=== PATIENT | male | born 1960 | race Hispanic/Latino ===

== ENCOUNTER 2023-04-01 12:29 | Emergency (ER) | payer SELFPAY ==
[2023-04-01 12:36] VITALS: BP 205/89; PULSE 68; RESP 16; TEMP 36.2; O2SAT 97
[2023-04-01 13:12] LABS: Add Manual Diff / Slide Review NO; Basophils Absolute Auto 0 /uL (0-100); Basophils Percent Auto 0.4 % (0-2); Eosinophils Absolute Auto 200 /uL (0-450); Eosinophils Percent Auto 3.2 % (2-4); Hematocrit 46.3 % (41-53); Hemoglobin 16.2 g/dL (13.5-17.5); Lymphocytes Absolute Auto 1500 /uL (1100-4500); Lymphocytes Percent Auto 27.5 % (25-40); Mean Corpuscular HGB Conc 34.9 % (30-36); Mean Corpuscular Hemoglobin 30.5 PG (26-34); Mean Corpuscular Volume 87.5 fL (80-100); Monocytes Absolute Auto 400 /uL (0-900); Monocytes Percent Auto 7.6 % (3-14); Neutrophils Absolute Auto 3400 /uL (1500-7000); Neutrophils Percent Auto 61.3 % (50-75); Platelet Count 142 X10^3/uL (150-400); Red Blood Cell Count 5.29 X10^6/uL (4.5-5.9); Red Cell Distribution Width 13.5 % (11.6-14.8); White Blood Cell Count 5.5 X10^3/uL (4.5-11.0)
[2023-04-01 13:21] LABS: Alanine Aminotransferase 71 IU/L (<50); Albumin 4.6 g/dL (3.5-5.0); Albumin Globulin Ratio 1.6 (1.0-2.8); Alkaline Phosphatase 66 U/L (38-126); Aspartate Aminotransferase 51 IU/L (17-59); BUN Creatinine Ratio 14.9 (6-22); Bilirubin Total 0.9 mg/dL (0.2-1.3); Blood Urea Nitrogen 14 mg/dL (9-20); Calcium 9.6 mg/dL (8.4-10.2); Carbon Dioxide 29 mmol/L (22-32); Chloride 102 mmol/L (98-107); Estimated Glomerular Filt Rate > 60 mL/min (>60); Globulin 2.9 g/dL (1.7-4.1); Glucose 106 mg/dL (80-110); HEMOLYSIS 24 (0-50); Lipase 93 U/L (23-300); Potassium 4.2 mmol/L (3.4-5.1); Sodium 138 mmol/L (137-145); Total Protein 7.5 g/dL (6.3-8.2)
[2023-04-01 16:08] VITALS: PULSE 65; O2SAT 100
[2023-04-01 16:10] VITALS: BP 156/73; PULSE 64; RESP 16; O2SAT 99
[2023-04-01 16:30] VITALS: BP 146/74; PULSE 62; RESP 18; O2SAT 99
--- NOTE | 2023-04-01 16:31 | DI.CT.S_ITS ---
PROCEDURE: CT ABDOMEN PELVIS W CON INDICATIONS: LLQ pain TECHNIQUE: After the administration of intravenous contrast, axial sections acquired from the lung bases to the pubic symphysis. Coronal and sagittal reformats were performed. For radiation dose reduction, the following was used: automated exposure control, adjustment of mA and/or kV according to patient size. COMPARISON: [facility], CT, ABDOMEN/PELVIS WITH CONTRAST, 11/02/2009, 22:52. [facility], CT, ABDOMEN/PELVIS WITH CONTRAST, 02/09/2008, 10:28. FINDINGS: Image quality: Excellent. Lung bases: Unremarkable. Heart: No significant findings. ABDOMEN: Liver: Unremarkable. Gallbladder: Unremarkable. Biliary ducts: Unremarkable. Pancreas: Unremarkable. Spleen: Unremarkable. Adrenal Glands: Unremarkable. Kidneys and Ureters: Unremarkable. Stomach and Bowel: Stomach, small bowel loops, and colon are unremarkable. Peritoneum: No abnormal intraperitoneal fluid. No free air. Ventral Wall: No hernias. Abdominal Nodes: No retroperitoneal or mesenteric adenopathy by size criteria. Vessels: Aorta and inferior vena cava are normal in size. PELVIS: Pelvic Organs: Unremarkable. Bladder: Unremarkable. Pelvic Nodes: No enlarged lymph nodes. Miscellaneous: No hernias are seen. Bones: Unremarkable. IMPRESSION: Source of left lower quadrant pain is not found. No evidence of inguinal hernia or diverticulitis seen. No mass lesion identified. Dictated by: Héctor Aguilera M.D. on 04/01/2023 at 17:03 Approved by: Héctor Aguilera M.D. on 04/01/2023 at 17:05
--- NOTE | 2023-04-01 16:33 | PC.NURSE ---
pt to room 12
[2023-04-01 17:00] VITALS: BP 132/70; PULSE 66; RESP 15; O2SAT 100
[2023-04-01 17:30] VITALS: BP 129/72; PULSE 65; RESP 14; O2SAT 100
--- NOTE | 2023-04-01 18:44 | ED_ITS ---
HPI - General Adult General Chief complaint: Abdominal Pain Stated complaint: discomfort lt lower abd pain Time Seen by Provider: 04/01/23 16:31 Source: patient and family Mode of arrival: Ambulatory Limitations: language barrier History of Present Illness HPI narrative: Patient is a 62-year-old male. Is Serbian-speaking only. [employer] was used to communicate. He is here for evaluation of several weeks of left lower quadrant abdominal pain. No change in bowel habits. No diarrhea. No constipation. He states he is feeling like he is having quite a bit of stomach acid. He is on a proton pump inhibitor. He is having an upper endoscopy and was told that he has stomach ulcers. He was told that he needed a colonoscopy but is yet to schedule this. He denies any urinary symptoms. He is never had a kidney stone before. No fevers. Some nausea but no vomiting. Related Data Home Medications Medication Instructions Recorded Confirmed Metoprolol Tartrate (Lopressor) BID ##0 11/02/09 TRAMADOL HYDROCHLORIDE (Ultram) ##0 11/02/09 Previous Rx's Medication Instructions Recorded sucralfate 100 mg/mL oral 10 ml PO QACHS #414 mL 04/01/23 suspension (Carafate) Allergies Allergy/AdvReac Type Severity Reaction Status Date / Time naproxen Allergy Verified 04/01/23 12:45 Review of Systems Constitutional Constitutional: Reports system reviewed and no additional complaints, except as documented Gastrointestinal Gastrointestinal: Reports system reviewed and no additional complaints, except as documented Genitourinary Genitourinary: Reports system reviewed and no additional complaints, except as documented Integumentary/Breasts Skin/Breast: Reports system reviewed and no additional complaints, except as documented Hematologic/Lymphatic On Anticoagulants: No Patient History Social History Smoking Status: Never smoker Smoking Status: Never smoker Substance Use Type: does not use Exam Initial Vital Signs Initial Vital Signs: Vital Signs Temperature 97.2 F L 04/01/23 12:36 Pulse Rate 68 04/01/23 12:36 Respiratory Rate 16 04/01/23 12:36 Blood Pressure 205/89 H 04/01/23 12:36 Pulse Oximetry 97 04/01/23 12:36 Oxygen Delivery Method Room Air 04/01/23 12:36 Const General: cooperative, comfortable and No ill appearing HENND Head: normal to inspection and normocephalic Resp Effort & Inspection: normal respiratory effort Auscultation: clear to auscultation bilaterally Cardio Rate: regular rate Rhythm: regular rhythm GI Inspection: normal to inspection and non-distended Palpation: soft and tender (Left-sided abdomen) Back/Spine/Pelvis Back: No CVA tenderness Neuro General: patient alert, patient awake and moves all extremities Extrem General: capillary refill normal Course Orders Ordered: ED Orders 04/01/23 16:31 CT abdomen pelvis w con Stat Discontinued Medications Ondansetron HCl (Ondansetron 4 Mg Odt) 4 mg PO NOW PRN PRN Reason: Nausea And Vomiting Ondansetron HCl (Ondansetron 4 Mg/2 Ml Inj) 4 mg IV NOW PRN PRN Reason: Nausea And Vomiting Vital Signs Vital signs: Vital Signs - 8 hr 04/01/23 17:00 04/01/23 17:00 04/01/23 17:30 Pulse Rate 66 65 Respiratory Rate 15 14 Blood Pressure 132/70 Pulse Oximetry 100 100 04/01/23 17:30 Pulse Rate Respiratory Rate Blood Pressure 129/72 Pulse Oximetry Medical Decision Making Lab Data Lab results reviewed: Yes I reviewed the patient's lab results. 04/01/23 12:50 04/01/23 12:50 Labs: Lab Results 04/01/23 Range/Units 12:50 WBC 5.5 (4.5-11.0) X10^3/uL RBC 5.29 (4.5-5.9) X10^6/uL Hgb 16.2 (13.5-17.5) g/dL Hct 46.3 (41-53) % MCV 87.5 (80-100) fL MCH 30.5 (26-34) PG MCHC 34.9 (30-36) % RDW 13.5 (11.6-14.8) % Plt Count 142 L (150-400) X10^3/uL Neut % (Auto) 61.3 (50-75) % Lymph % (Auto) 27.5 (25-40) % [place] % (Auto) 7.6 (3-14) % Eos % (Auto) 3.2 (2-4) % Baso % (Auto) 0.4 (0-2) % Neut # (Auto) 3400 (9074-9691) /uL Lymph # (Auto) 1500 (1590-0458) /uL [place] # (Auto) 400 (0-900) /uL Eos # (Auto) 200 (0-450) /uL Baso # (Auto) 0 (0-100) /uL Sodium 138 (137-145) mmol/L Potassium 4.2 (3.4-5.1) mmol/L Chloride 102 (98-107) mmol/L Carbon Dioxide 29 (22-32) mmol/L BUN 14 (9-20) mg/dL Creatinine 0.94 (0.66-1.25) mg/dL Estimated GFR > 60 (>60) mL/min BUN/Creatinine Ratio 14.9 (6-22) Glucose 106 (80-110) mg/dL Calcium 9.6 (8.4-10.2) mg/dL Total Bilirubin 0.9 (0.2-1.3) mg/dL AST 51 (17-59) IU/L ALT 71 H (<50) IU/L Alkaline Phosphatase 66 (38-126) U/L Total Protein 7.5 (6.3-8.2) g/dL Albumin 4.6 (3.5-5.0) g/dL Globulin 2.9 (1.7-4.1) g/dL Albumin/Globulin Ratio 1.6 (1.0-2.8) Lipase 93 (23-300) U/L Urine Dip Bedside Urine Glucose Negative Bedside Urine Bilirubin - Negative Bedside Urine Ketone - Negative Urine Specific [place] 1.005 Bedside Urine Occult Blood - Negative Bedside Urine pH 6.5 Bedside Urine Protein - Negative Bedside Urine Urobilinogen - Negative Bedside Urine Nitrite - Negative Bedside Urine Leukocytes - Negative Esterase Point of care testing: Urine Dip Bedside Urine Glucose Negative Bedside Urine Bilirubin - Negative Bedside Urine Ketone - Negative Urine Specific [place] 1.005 Bedside Urine Occult Blood - Negative Bedside Urine pH 6.5 Bedside Urine Protein - Negative Bedside Urine Urobilinogen - Negative Bedside Urine Nitrite - Negative Bedside Urine Leukocytes - Negative Esterase Imaging Data CT scan - abdomen/pelvis: Radiologist's Impression: PROCEDURE: CT ABDOMEN PELVIS W CON INDICATIONS: LLQ pain TECHNIQUE: After the administration of intravenous contrast, axial sections acquired from the lung bases to the pubic symphysis. Coronal and sagittal reformats were performed. For radiation dose reduction, the following was used: automated exposure control, adjustment of mA and/or kV according to patient size. COMPARISON: [facility], CT, ABDOMEN/PELVIS WITH CONTRAST, 11/02/2009, 22:52. [facility], CT, ABDOMEN/PELVIS WITH CONTRAST, 02/09/2008, 10:28. FINDINGS: Image quality: Excellent. Lung bases: Unremarkable. Heart: No significant findings. ABDOMEN: Liver: Unremarkable. Gallbladder: Unremarkable. Biliary ducts: Unremarkable. Pancreas: Unremarkable. Spleen: Unremarkable. Adrenal Glands: Unremarkable. Kidneys and Ureters: Unremarkable. Stomach and Bowel: Stomach, small bowel loops, and colon are unremarkable. Peritoneum: No abnormal intraperitoneal fluid. No free air. Ventral Wall: No hernias. Abdominal Nodes: No retroperitoneal or mesenteric adenopathy by size criteria. Vessels: Aorta and inferior vena cava are normal in size. PELVIS: Pelvic Organs: Unremarkable. Bladder: Unremarkable. Pelvic Nodes: No enlarged lymph nodes. Miscellaneous: No hernias are seen. Bones: Unremarkable. IMPRESSION: Source of left lower quadrant pain is not found. No evidence of inguinal hernia or diverticulitis seen. No mass lesion identified. [facility] Narrative Medical decision making narrative: Patient does have a very benign exam. His labs unremarkable. CT scan shows no acute pathology. No indication for surgical consultation. There does not appear to be any infectious source. There are no skin changes concerning for zoster. Unsure the exact etiology of the patient's symptoms. The patient did understand this. I did advise that he follow through with the recommendation of have a colonoscopy. He is having quite a bit of symptoms that would be consistent with reflux disease. He is on a proton pump inhibitor. Will put him on Carafate for the next couple days. He expressed understanding of the use of this medication. Will discharge home with follow-up with primary provider. He was given return precautions. He expressed understanding and agreement with plan. Discharge Plan Departure Patient Disposition: Home Clinical Impression: Abdominal pain Instructions: DI for Abdominal Pain-Adult Activity Restrictions/Additional Instructions: I do recommend that you take the Carafate for the next week as directed. After that you can take it as needed. Usual do need to follow-up for your colonoscopy. You can also contact the urology department the number provided below for follow-up as well. Return to the emergency department for new symptoms. Prescriptions: New sucralfate [Carafate] 100 mg/mL suspension 10 ml PO QACHS Qty: 414 0RF No Action TRAMADOL HYDROCHLORIDE (Ultram) Qty: 0 Metoprolol Tartrate (Lopressor) BID Qty: 0 Referrals: Cal Celaya MD [Physician] - Cal Gonzalez MD [Primary Care Provider] - Stand Alone Forms: Patient Portal/API
== END 2023-04-01 19:15 | disposition home or self-care (01) ==
PROVIDERS: Emergency Medicine; Emergency Provider Emergency Medicine; PCP Family Medicine
DX: R10.32 Left lower quadrant pain (principal)
CPT/HCPCS: 36415; 74177; 80053; 81003; 83690; 85025; 93005; 99283; 99284; Q9967